=== PATIENT | female | born 1990 | race Caucasian/White ===

== ENCOUNTER 2017-12-18 06:06 | Inpatient (IN) ==
[2017-12-18] MEDS ORDERED: ceFAZolin 2 GM IV; once IV.SIG PRN (06:46)
[2017-12-18] MEDS ORDERED: FOSAPREPITANT IV.SIG PRN (06:48)
[2017-12-18] MEDS ORDERED: SODIUM CHLOR 0.9% IV.SIG PRN (06:48)
[2017-12-18] MEDS ORDERED: Metoprolol Tartrate 25 MG Tablet PO SCH (07:00)
[2017-12-18] MEDS ORDERED: Chlorhexidine Gluconate 2% 1 Pack (2 Cloths) TOPICAL SCH (07:00)
[2017-12-18] MEDS ORDERED: Sodium Chlor 0.9% Inj 500 ML IV.SIG SCH (07:00)
[2017-12-18] MEDS ORDERED: Bupivacaine Liposomal PF 1.3% Inj 20 ML Vial ONE (07:23)
[2017-12-18] MEDS ORDERED: Bupivacaine PF 0.25% Inj 30 ML Vial ONE (07:24)
[2017-12-18 07:27] LABS: Baso # (Auto) 0.1 th/mm3 (0.0-0.2); Baso % (Auto) 0.8 % (0.0-2.0); Eos # (Auto) 0.3 th/mm3 (0.0-0.4); Eos % (Auto) 3.7 % (0.0-4.0); Hematocrit 37.9 % (35.0-46.0); Hemoglobin 12.5 gm/dL (11.6-15.3); Lymph # (Auto) 2.5 th/mm3 (1.0-4.8); Lymph % (Auto) 27.4 % (9.0-44.0); Mean Corpuscular HGB Conc 33.1 % (32.0-36.0); Mean Corpuscular Hemoglobin 29.2 pg (27.0-34.0); Mean Corpuscular Volume 88.3 fL (80.0-100.0); Mean Platelet Volume 8.5 fL (7.0-11.0); Mono # (Auto) 0.8 th/mm3 (0.0-0.9); Mono % (Auto) 8.5 % (0.0-8.0); Neut # (Auto) 5.5 th/mm3 (1.8-7.7); Neut % (Auto) 59.6 % (16.0-70.0); Platelet Count 284 th/mm3 (150-450); Red Blood Count 4.29 mil/mm3 (4.00-5.30); White Blood Count 9.3 th/mm3 (4.0-11.0)
[2017-12-18] MEDS: Bupivacaine/Epinephrine Inj 0.25% 50 ML Vial ONE ×2 (09:00→16:11)
[2017-12-18] MEDS ORDERED: Hydrocortisone Sod Succinate 250 MG Vial ONE (09:58)
[2017-12-18] MEDS ORDERED: Bisacodyl 10 MG Supp RECTAL PRN (10:50)
[2017-12-18] MEDS ORDERED: Post-op Orders (for Pharmacy) OTHER ONE (10:50)
[2017-12-18] MEDS ORDERED: *morphine SULFATE 4 MG/ML PERIprocedure ONLY ONE (10:53)
[2017-12-18] MEDS ORDERED: fentaNYL Citrate Inj 100 MCG/2 ML Ampul ONE (10:54)
[2017-12-18] MEDS ORDERED: *Ondansetron Inj 4 MG/2 ML Vial PERIprocedural Use ONLY ONE (10:57)
[2017-12-18] MEDS ORDERED: Neostigmine Inj 5 MG/5 ML Syringe IV.PUSH ONE (11:04)
[2017-12-18] MEDS ORDERED: Glycopyrrolate Inj 1 MG/5 ML Syringe IV.PUSH ONE (11:04)
[2017-12-18] MEDS ORDERED: Lidocaine PF 1% Inj 5 ML Syringe INFILTRATN ONE (11:04)
[2017-12-18] MEDS ORDERED: *Promethazine Inj 25 MG/ML Vial PERIprocedural use ONLY ONE (11:07)
--- NOTE | 2017-12-18 11:10 | P.OP ---
Date of procedure: 12/18/17 Procedure: Open repair ventral incisional hernia with modified separation of components, placement of retrorectus TIGR mesh 10 x 15 cm, bilateral myofascial advancement flaps, anterior right lower quadrant fascial relaxing incision with onlay bio a mesh. Placement of BARRIE dressing. Implants: Retrorectus TIGR mesh, onlay bio a mesh Anesthesia: TABITHA Surgeon: Rajat Mendoza MD Hand Cigar Making Supervisor: Juanito Estimated blood loss (mL): 13 Urine output (mL): 300 Pathology: none sent Operation and Findings: Patient was identified as Yoli Calabrese, taken to the operating room, placed in a supine position. Sequential compression device were placed on bilateral lower extremities. Following induction of adequate general endotracheal anesthesia, Potts catheter was placed, and the patient's abdomen was prepped and draped in the usual sterile fashion with Betadine. A timeout procedure was performed. Following completion of the timeout procedure everyone's satisfaction within the room proposed elliptical incision including the previous low transverse scar was made with a marking pen and infiltrated with 20 cc of 0.25% Marcaine with epinephrine. The incision was carried out the scalpel and old scar was excised in its entirety. In doing so the peritoneal cavity was entered as the hernia sac laid directly beneath the incisional scar. There were no incarcerated contents and only one small area of omentum was there a small adhesion which was divided with electrocautery. The thickened rind of a hernia sac was then from surrounding subcutaneous fatty tissue circumferentially. Broadly laterally the rectus muscle and fascial layers were identified and preserved. The posterior rectus pre-peritoneal plane was developed on both sides using electrocautery. This is made difficult due to very thin peritoneum on both sides however it was successful. Inferiorly the pubic symphysis and bilateral Geo's ligaments were cleared from the peritoneum, superiorly at least 4-5 cm above the hernia sac was cleared. The posterior peritoneum and fascial layer were closed with a running #1 single-stranded suture. Copious irrigation ensued. There was no evidence of bleeding. A 10 x 15 cm piece of T IGR mesh was selected modified slightly and placed in the retrorectus position. It was sutured in place at the 6:00 and then 12:00 positions for broad coverage of the hernia defect using interrupted 2-0 PDS the suture. Sutures were then placed at the 3 and 9:00 positions. Interrupted sutures were then placed in between 6 and 9:00 12 and 3:00 and 3 and 6:00 and then 9 and 12:00 to create a taut broad coverage of the retrorectus space. Irrigation ensued there is no evidence of bleeding. The anterior fascia was then cleared from the subcutaneous fatty tissue using electrocautery allowing for medialization of the anterior fascia and the rectus rectus musculature. This was fairly taut, and required an anterior fascial release in the right lower quadrant which allowed for closure of the midline fascia with a running # 1 single-stranded PDS suture. Irrigation ensued in the subcutaneous space. The anterior fascial release in the right lower quadrant was covered the customized piece of [place] bio a mesh which was held in position with interrupted 2-0 Vicryl suture. The large subcutaneous space was then closed with multiple quilting sutures of 2-0 Vicryl suture to close the space. 2-0 Vicryl was placed to approximate the subcutaneous fatty tissue layer at the midline into the anterior fascia deep, and interrupted 2-0 Vicryl's were placed in the more subcutaneous fatty tissue. The skin incision was approximated with a running 4- 0 Monocryl subcuticular suture. A PIC O dressing was placed in a standard fashion placed to suction and there was no evidence of leak. The patient tolerated the procedure without apparent complication. Sponge needle and instrument counts were correct at the end of the case. The patient was transported to PACU in stable condition.
[2017-12-18] MEDS ORDERED: Ketorolac Inj 30 MG/ML (IVP) Vial ONE (12:46)
[2017-12-18] MEDS ORDERED: Ketorolac Inj 30 MG/ML (IVP) Vial IV.PUSH PRN (13:00)
[2017-12-18] MEDS ORDERED: Scopalamine 1.5 MG Patch T-DERMAL ONE (17:53)
[2017-12-18] MEDS: Senna/Docusate Sodium 8.6/50 MG Tablet PO SCH (21:22)
[2017-12-18] MEDS: Ibuprofen 600 MG Tablet PO PRN ×2 (21:29→21:55)
--- NOTE | 2017-12-19 07:26 | P.PNGS ---
Subjective Patient reports: still having pain (Set up on the edge of the bed was pretty sore. Understand she has to get up and move around today. Scopolamine patches provided improved) Physical Exam Vital signs: Vital Signs 12/18/17 10:38 12/18/17 10:45 12/18/17 11:00 Temperature 98.4 F Pulse Rate 62 71 Respiratory Rate 16 16 Blood Pressure 126/73 132/75 Pulse Oximetry 100 100 100 12/18/17 11:15 12/18/17 11:30 12/18/17 11:35 Temperature Pulse Rate 59 L 58 L Respiratory Rate 16 16 Blood Pressure 132/74 132/75 Pulse Oximetry 100 100 99 12/18/17 12:00 12/18/17 12:30 12/18/17 13:00 Temperature 97.8 F 97.8 F 97.8 F Pulse Rate 62 65 54 L Respiratory Rate 16 16 16 Blood Pressure 131/82 117/69 126/70 Pulse Oximetry 98 99 98 12/18/17 14:00 12/18/17 16:00 12/18/17 16:51 Temperature 97.8 F 98.1 F Pulse Rate 62 50 L Respiratory Rate 16 18 16 Blood Pressure 124/79 116/57 L Pulse Oximetry 99 95 12/18/17 20:00 12/18/17 21:56 12/19/17 00:00 Temperature 97.3 F L 97.5 F L Pulse Rate 54 L 57 L Respiratory Rate 16 18 16 Blood Pressure 137/71 136/71 Pulse Oximetry 97 97 12/19/17 04:00 Temperature 98.0 F Pulse Rate 68 Respiratory Rate 16 Blood Pressure 136/71 Pulse Oximetry 98 Intake & Output 12/18/17 12/19/17 12/19/17 18:59 06:59 18:59 Intake Total 2850 / 2850 480 / 480 Output Total 1130 / 1130 450 / 450 Balance 1720 / 1720 30 / 30 Weight 82.3 kg Intake: IV 1150 / 1150 Ofirmev Inj 1,000 mg In 100 ml 100 / 100 @ 400 mls/hr IV.SIG Q6H ALETHEA Rx# :[id number] LR 1000 mL Inj 1,000 ML @ 30 1000 / 1000 mls/hr IV.SIG .Q24H ALETHEA Rx#: [id number] Ancef 2 GM Premix Inj 2 gm In 50 / 50 50 ml @ 100 mls/hr IV.SIG [facility] [employer] PRN Rx#:[id number] Oral 480 / 480 Anesthesia Amount 1700 / 1700 Output: Estimated Blood Loss 30 / 30 Urine Amount (Catheter) 1100 / 1100 450 / 450 Indwelling Urethral Catheter 1100 / 1100 450 / 450 Other: Date of Last Bowel Movement 12/17/17 12/17/17 # Bowel Movements 0 Narrative: Abdomen remains nondistended. PIC O dressing is intact with no drainage. Extremities are nonedematous with sequential compression device in place. - Urinary Catheter Management Indwelling Urethral Catheter Cath placed during this visit: yes Reason for continuing: Other continuation reason Insertion date: 12/18/17 Insertion time: 10:00 Assessment and Plan - Plan Postop day 1 status post open repair ventral incisional hernia from recent C- section. Modified component separation with retrorectus mesh requiring relaxing incision the right lower quadrant. Patient is appropriately sore after surgery. Plan today up out of bed to the chair and walk around the room in the halls as tolerated. Patient may have Potts catheter removed when she desires. Her is her bedside and understands the plan of care. Continue IV fluids for now. Discussed Condition With: Patient and
[2017-12-19] MEDS: Ibuprofen 600 MG Tablet PO PRN ×2 (07:30→15:50)
[2017-12-19] MEDS: Senna/Docusate Sodium 8.6/50 MG Tablet PO SCH ×2 (08:45→21:35)
[2017-12-19] MEDS: Enoxaparin Inj 40 MG/0.4 ML Syringe SQ SCH ×2 (08:45→12:23)
[2017-12-20] MEDS: Ibuprofen 600 MG Tablet PO PRN (08:15)
[2017-12-20] MEDS: Senna/Docusate Sodium 8.6/50 MG Tablet PO SCH (08:15)
== END 2017-12-20 11:05 | disposition home or self-care (01) ==
LOC: HOR 06:06 → HSDI 10:50 → N06 14:42
PROVIDERS: ADMIT Surgery Trauma Surgery; ATTEND Surgery Trauma Surgery